=== PATIENT | female | born 2000 | race Two or more races ===

== ENCOUNTER 2022-02-23 22:24 | Emergency (ER) | payer MEDICAID ==
[~2022-02-23] VITALS: Ht 165.1 cm; Wt 109.3 kg
[~2022-02-23 22:24] MED LIST: PALI234D IM
[2022-02-23 23:54] VITALS: BP 147/102
--- NOTE | 2022-02-24 06:30 | NUR ---
DR. GUERRERO AT BEDSIDE.
== END 2022-02-24 06:40 | disposition home or self-care (01) ==
LOC: ER 22:25
DX: R44.0 Auditory hallucinations (principal); J45.909 Unspecified asthma, uncomplicated; F41.9 Anxiety disorder, unspecified; F32.9 Major depressive disorder, single episode, unspecified; F12.90 Cannabis use, unspecified, uncomplicated; Z79.899 Other long term (current) drug therapy
CPT/HCPCS: 99283

== ENCOUNTER 2023-01-29 23:11 | Inpatient (IN) | payer MEDICAID ==
[~2023-01-29] VITALS: Ht 167.6 cm; Wt 102.0 kg
[2023-01-29] MEDS ORDERED: FLUO-1 PO (23:53)
[2023-01-29] MEDS ORDERED: ARIP400S3 IM (23:53)
[2023-01-29] MEDS ORDERED: LEVO112T5 PO (23:53)
[2023-01-29] MEDS ORDERED: BENZ2TAB70 PO (23:53)
[2023-01-29] MEDS ORDERED: VALB80CA PO (23:53)
[2023-01-30 00:05] LABS: BASOPHILS # (AUTO) 0.1 X10'3 (0-0.2); BASOPHILS % (AUTO) 0.7 % (0-1); EOSINOPHILS # (AUTO) 0.1 X10'3 (0-0.9); EOSINOPHILS % (AUTO) 1.3 % (0-6); HEMATOCRIT 39.4 % (35.0-45.0); HEMOGLOBIN 13.3 g/dl (12.0-16.0); LYMPHOCYTES # (AUTO) 2.3 X10'3 (1.1-4.8); LYMPHOCYTES % (AUTO) 25.4 % (21-51); MEAN CORPUSCULAR HEMOGLOBIN 27.5 PG (27.0-31.0); MEAN CORPUSCULAR HGB CONC 33.9 g/dL (33.0-36.5); MEAN CORPUSCULAR VOLUME 81.2 FL (78-98); MEAN PLATELET VOLUME 8.2 FL (7.4-10.4); MONOCYTES # (AUTO) 0.6 X10'3 (0-0.9); MONOCYTES % (AUTO) 6.3 % (2-12); NEUTROPHILS % (AUTO) 66.3 % (42-75); PLATELET COUNT 285 X10'3 (140-440); RED BLOOD COUNT 4.85 X10'6 (4.20-5.60); RED CELL DISTRIBUTION WIDTH 16.2 % (11.5-14.5); WHITE BLOOD COUNT 9.1 X10'3 (4.5-11.0)
[2023-01-30 00:14] LABS: ALANINE AMINOTRANSFERASE 58 U/L (12-78); ALBUMIN 4.1 G/DL (3.4-5.0); ALBUMIN/GLOBULIN RATIO 1.2 (1.1-1.5); ALKALINE PHOSPHATASE 89 IU/L (46-116); ANION GAP 11 (8-16); ASPARTATE AMINO TRANSFERASE 21 U/L (10-37); BILIRUBIN,TOTAL 0.4 MG/DL (0.1-1.0); BLOOD UREA NITROGEN 25 MG/DL (7-18); BUN/CREATININE RATIO 27.2 (10.0-20.0); CALCIUM 9.1 MG/DL (8.5-10.1); CHLORIDE 105 MMOL/L (99-107); CREATININE 0.92 MG/DL (0.40-0.90); GLUCOSE 98 MG/DL (70-104); POTASSIUM 3.5 MMOL/L (3.5-5.1); SODIUM 140 MMOL/L (135-145); TOTAL CARBON DIOXIDE 24.2 MMOL/L (24-32); TOTAL PROTEIN 7.6 G/DL (6.4-8.2); eGFR 75 ML/MIN
--- NOTE | 2023-01-30 00:20 | NUR ---
pt placed in room ed12
[2023-01-30 00:24] LABS: ETHANOL < 0.010 GM/DL (0.0-0.010)
--- NOTE | 2023-01-30 00:54 | NUR ---
pt meds taked to pharmacy. reciept placed in chart
[2023-01-30] MEDS ORDERED: levoTHYROXINE 112mcg tablet PO ONE (00:55)
--- NOTE | 2023-01-30 01:17 | NUR ---
pbb x1 locked in overflow storage room
--- NOTE | 2023-01-30 03:10 | NUR ---
pt yelling out "i dont want to live, no one is helping me." started discussion on procedure in the ed for mental health evale. education given on different copeing skills. pt responded well to instructions was able to redirect pt negitive thoughts into a more positive outlook. pt calmed down an stated" i feel better now". pt resting comfortably
[2023-01-30 04:31] LABS: URINE HCG NEGATIVE (NEG)
[2023-01-30 04:32] LABS: CLARITY,URINE CLEAR (Clear); COLOR,URINE YELLOW (Yellow); GLUCOSE, URINE NEGATIVE (Neg); KETONES,URINE 40 mg/dl (Neg); LEUKOCYTE ESTERASE ,URINE NEGATIVE (Neg); NITRITES, URINE NEGATIVE (Neg); OCCULT BLOOD,URINE NEGATIVE (Neg); PROTEIN,URINE 30 mg/dl (Neg); UROBILINOGEN,URINE 0.2 E.U/dL (0.2-1.0)
[2023-01-30 04:43] LABS: MUCUS STRANDS MANY /LPF (Neg); UA COLLECTION TYPE CLN CATCH MIDSTREAM
[2023-01-30 04:44] LABS: BACTERIA,URINE 1+ /HPF (Neg); FINE GRANULAR CAST 0-3 /LPF (NEGATIVE); SQUAMOUS EPITHELIAL CELL,UR MANY /LPF (FEW)
[2023-01-30 04:45] LABS: RBC,URINE 0-2 /HPF (0-2); URINE AMPHETAMINE SCREEN NEGATIVE (Neg); URINE BARBITUATE SCREEN NEGATIVE (Neg); URINE BENZODIAZEPINES SCREEN NEGATIVE (Neg); URINE CANNABINOID SCREEN NEGATIVE (Neg); URINE COCAINE SCREEN NEGATIVE (Neg); URINE METHADONE SCREEN NEGATIVE (Neg); URINE OPIATE SCREEN NEGATIVE (Neg); URINE PHENCYCLIDINE SCREEN NEGATIVE (Neg)
--- NOTE | 2023-01-30 06:06 | NUR ---
pt came out of room looking through drawers of room carts, when questioned on what shes doing she replied with " im looking for pills to kill myself with. pt was able to be redirected back into her room. pt sitting quietly on bed, somber effect , crying once in awhile.
--- NOTE | 2023-01-30 06:35 | NUR ---
Patient brought to ER overflow, in green scrubs. Patient was quite when she came over and sat in the middle of her bed, starring at nurses station.
--- NOTE | 2023-01-30 07:30 | NUR ---
Patient went to the bathroom and flooded the toilet. Patient started crying when staff advised her not to stuff toilet paper in the toilet. Patient stated that she was consitpated. Advised MD and MOM was ordered and given
[2023-01-30] MEDS ORDERED: LEVO112C4 PO (08:24)
[2023-01-30] MEDS ORDERED: FLUO20CA39 PO (08:24)
[2023-01-30] MEDS ORDERED: VALB80CA PO (08:24)
[2023-01-30] MEDS ORDERED: BENZ1TAB93 PO (08:24)
--- NOTE | 2023-01-30 08:29 | NUR ---
packet faxed to [facility]
[2023-01-30] MEDS ORDERED: magnesium hydroxide 30ml (MOM) UD suspension PO ONE (08:35)
--- NOTE | 2023-01-30 12:00 | NUR ---
Patient accepted at [facility]. Going upstairs at 1400. Patient calm and in no distress. Continue to monitor.
--- NOTE | 2023-01-30 12:25 | NUR ---
Patient is calm, and visiting with family at bedside.
[2023-01-30] MEDS ORDERED: magnesium hydroxide 30ml (MOM) UD suspension PO PRN (12:45)
--- NOTE | 2023-01-30 13:16 | NUR ---
Patient had a BM today after drinking MOM
--- NOTE | 2023-01-30 13:52 | NUR ---
Patient grandmother took all her belongings home after the visit. Belonging list was signed by grandmother. Grandmother states that she will bring back some clean clothes for the patient.
[2023-01-30 14:59] VITALS: BP 137/95
--- NOTE | 2023-01-30 16:05 | NUR ---
ADMIT NOTE: Pt transferred from ER overflow bed 23 to [facility] bed 331B. She arrived on the unit via wheelchair accompanied by [employer] and security at 1437. Pt arrived wearing a very long bright pink wig with pigtails on each side. Pt was reluctant to give up her wig and shut down. Pt would not cooperate or answer questions nor give up the wig. Security was called and patient did relinquish the wig. She was then cooperative with the rest of the admission process. Pt BIB Account Financial Manager after she called [employer] reporting that she was armed with a knife and wanted to kill herself. Pt continued to make suicidal statements and was unable to safety plan. Pt was placed on a 5150 for DTS. Pt currently denies SI. 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 Pt's grandmother works as a MAIL DISTRIBUTION CLERK at [employer]. Per pt, she became paranoid when she received a call from [id number] "drugs" talking about a delivery. There was a misunderstanding per patient, evidently other staff members became involved and it ended up that the delivery was for the patient's medication Ingrezza. Pt believed staff members were looking at her weird and pointing fingers. Pt is circumstantial and took a long time to explain what had happened. Pt reports that she then felt like she could feel better by skateboarding and listening to her headphones. Pt knows that she needs her meds. Pt reports that her next dose of Abilify maintenna is due on the . Pt reports that she used to be a cutter when she was younger but has had no serious suicide attempts. Pt reports that she is Polynesian.
[2023-01-30 20:30] VITALS: BP 123/86
--- NOTE | 2023-01-31 04:55 | NUR ---
Nursing Progress Note: Problem: Pt WING [place] after she called [employer] reporting that she was armed with a knife and wanted to kill herself. Pt continued to make suicidal statements and was unable to safety plan. Pt was placed on a 5150 for DTS. 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 Pt's grandmother works as a MANAGER OF ORGANIZATIONAL DEVELOPMENT at [employer]. Per pt, she became paranoid when she received a call from [employer] "drugs" talking about a delivery. There was a misunderstanding per patient, evidently other staff members became involved and it ended up that the delivery was for the patient's medication Ingrezza. Pt believed staff members were looking at her weird and pointing fingers. Pt is circumstantial and took a long time to explain what had happened. Pt reports that she then felt like she could feel better by skateboarding and listening to her headphones. Pt knows that she needs her meds. Pt reports that her next dose of Abilify maintenna is due on the . Pt reports that she used to be a cutter when she was younger but has had no serious suicide attempts. Pt reports that she is Polynesian. Intervention: Provided 1:1 assessment with therapeutic communication and active listening; Medication administration/education/monitoring; Provided clear and simple instructions; Encouraged performance of ADLs and participation on the unit, and maintained Q 15min safety checks. Response: Upon turn of shift noted patient wearing green scrubs while standing near nurses station looking for her nurse. Was in open body posture and friendly. Noted to have fair hygiene with bright pink hair standing up all over head. Reports feeling insecure about her weight issues, and how she feels like she has to look a certain way to be accepted. Denies SI, HI, AH and VH. No scheduled meds given. No PRNs given. Slept well this shift. VSS. Will continue to monitor. Plan: Patient requires interruption of current crisis in a safe and therapeutic environment; medication adjustment as needed.
[2023-01-31] MEDS: levoTHYROXINE 112mcg tablet PO SCH (07:56)
[2023-01-31] MEDS: FLUoxetine 20mg capsule PO SCH (07:56)
[2023-01-31] MEDS: benztropine 1mg tablet PO SCH (07:56)
[2023-01-31 08:00] VITALS: BP 124/68
--- NOTE | 2023-01-31 15:29 | NUR ---
Nursing Progress Note: Problem: Pt WING Crook after she called [employer] reporting that she was armed with a knife and wanted to kill herself. Pt continued to make suicidal statements and was unable to safety plan. Pt was placed on a 5150 for DTS. 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 Pt reports that she used to be a cutter when she was younger but has had no serious suicide attempts. Intervention: 1:1 assessment, establishment of rapport, therapeutic conversation, active listening, ensured contract for safety, medication administration/education/monitoring, provided distraction, simple directions, reality orientation, positive reinforcement and Q15 minute safety checks. Response: Pt was up for breakfast, she was pleasant and cooperative with taking her medications although she did report that she normally takes her Ingrezza at HS as it makes her "jittery" in the morning. At around 0930, pt approached this nurse to ask if we could talk. Followed pt down the dsouza. Pt anxiously stated that "Abdi said he wants to keep me here forever." Pt was referring to JOSETTE Sesay. Pt was wide eyed. Pt went on to say that she has to be out of here by February as she has to go to her brother's middle school graduation. Reassured pt that she would not be here forever and that it was highly unlikely that she would still be on the unit in February as she has a good support system at home and established providers. Suggested that if Abdi did say that perhaps he was joking and only said it because he likes her. Pt was reassured. Pt's grandma dropped off clothes and other belongings for her, many of the items appeared brand new. Pt spent time in the milieu coloring, socializing with peers, and watching TV. Pt is helpful with some of the older peers. Pt denies SI/HI/AH/VH. Pt does not appear to be responding to internal stimuli. Pt shows some insight by re-evaluating the actions that landed her in a psych facility. Pt explains that she just felt overwhelmed in the moment and couldn't stand the way she was feeling. In hindsight, pt realizes she should have reached out to someone. Plan: Patient requires interruption of current crisis in a safe and therapeutic environment.
[2023-01-31 19:41] VITALS: BP 122/75
--- NOTE | 2023-02-01 03:41 | NUR ---
Nursing Progress Note: Problem: Pt WING Crook after she called [employer] reporting that she was armed with a knife and wanted to kill herself. Pt continued to make suicidal statements and was unable to safety plan. Pt was placed on a 5150 for DTS. 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 Pt reports that she used to be a cutter when she was younger but has had no serious suicide attempts. Intervention: 1:1 assessment, establishment of rapport, therapeutic conversation, active listening, ensured contract for safety, medication administration/education/monitoring, provided distraction, simple directions, reality orientation, positive reinforcement and Q15 minute safety checks. Response: Upon turn of shift noted patient in activity room socializing, wearing green scrubs, and wide eyed look. Has bright pink hair pulled back in a bun on top of her head. Is pleasant, calm and cooperative. Open body posture and friendly. Reports that she feels, better. Denies SI, HI, AH, and VH. Requested to have her pink pants removed from suitcase. No scheduled meds given and no PRNs given. Went to bed early and slept well this shift. VSS. Will continue to monitor. Plan: Patient requires interruption of current crisis in a safe and therapeutic environment.
[2023-02-01] MEDS: benztropine 1mg tablet PO SCH (07:47)
[2023-02-01] MEDS: levoTHYROXINE 112mcg tablet PO SCH (07:47)
[2023-02-01] MEDS: FLUoxetine 20mg capsule PO SCH (07:47)
[2023-02-01 08:00] VITALS: BP 131/76
--- NOTE | 2023-02-01 15:39 | NUR ---
Nursing Progress Note: Problem: Pt WING Crook after she called [employer] reporting that she was armed with a knife and wanted to kill herself. Pt continued to make suicidal statements and was unable to safety plan. Pt was placed on a 5150 for DTS. 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 Pt reports that she used to be a cutter when she was younger but has had no serious suicide attempts. Intervention: 1:1 assessment, establishment of rapport, therapeutic conversation, active listening, ensured contract for safety, medication administration/education/monitoring, provided distraction, simple directions, reality orientation, positive reinforcement and Q15 minute safety checks. Response: Pt was up before breakfast and cooperative with her medications. Pt reports that she did not feel "jittery" yesterday after taking her Ingrezza in the morning. Pt declined to eat breakfast reporting that she was not hungry. Pt did eat morning snack and lunch. Pt's grandmother came for a visit. Pt showered today. Pt socializes with select peers. Pt denies depression, SI/HI/AH/VH. Plan: Patient requires interruption of current crisis in a safe and therapeutic environment.
--- NOTE | 2023-02-01 15:59 | NUR ---
CASE MANAGEMENT Spoke to Pt's grandmother Neha [phone] today. Pt lives with her grandmother and plans to go back there upon discharge. Pt's grandmother is in agreement with this plan. Her grandmother can pick her up on Saturday after 2:30PM as she works. Her grandmother is very supportive and has been Pt's main caregiver since she was a child. Follow up appointments have been made for Pt for next week and in the discharge summary. Nuha Koch LCSW
[2023-02-01 19:00] VITALS: BP 116/73
--- NOTE | 2023-02-02 03:19 | NUR ---
RN PROGRESS NOTE: PROBLEM: Pt WING Crook after she called [employer] reporting that she was armed with a knife and wanted to kill herself. Pt continued to make suicidal statements and was unable to contract for safety. Pt was placed on a 5150 for DTS. 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 Pt reports that she used to be a cutter when she was younger but has had no serious suicide attempts. INTERVENTIONS: Assessments and Q 15 min checks for safety. RESPONSE: Client was pleasant and cooperative. Denies side effects to medications and states she is "doing better". Compliant with medications. Mood is stable.
[2023-02-02 08:00] VITALS: BP 111/76
[2023-02-02] MEDS: FLUoxetine 20mg capsule PO SCH (08:51)
[2023-02-02] MEDS: benztropine 1mg tablet PO SCH (08:51)
[2023-02-02] MEDS: levoTHYROXINE 112mcg tablet PO SCH (08:52)
--- NOTE | 2023-02-02 14:10 | NUR ---
Called patient family, to make aware of patients discharge. Patient Grandmother verified that she will be here at 3.
--- NOTE | 2023-02-02 14:11 | NUR ---
Nursing Progress Note: Problem: Pt WING Crook after she called [employer] reporting that she was armed with a knife and wanted to kill herself. Pt continued to make suicidal statements and was unable to safety plan. Pt was placed on a 5150 for DTS. 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 Pt reports that she used to be a cutter when she was younger but has had no serious suicide attempts. Intervention: 1:1 assessment, establishment of rapport, therapeutic conversation, active listening, ensured contract for safety, medication administration/education/monitoring, provided distraction, simple directions, reality orientation, positive reinforcement and Q15 minute safety checks. Response: Pt was up before breakfast and cooperative with her medications. Patient reported she had good nights rest, woke at 0300 then went back to bed till 0600. Pt did eat breakfast morning snack and lunch. Pt's grandmother is brandi arrive at 1500 for patient discharge into her care. Plan: Patient requires interruption of current crisis in a safe and therapeutic environment.
--- NOTE | 2023-02-02 14:45 | NUR ---
Patient discharged home to the care of her grandmother, Patient was sent home with no new medications patient education was provided by fuel assembler. Patient went through all of her belongings and left with them at discharge. Patient had no IV for removal. Patient family was contacted and stated to arrive at the 1500 hour. Patient left with all of her belongings at discharge.
[2023-02-13] MEDS ORDERED: aripiprazole 400mg suspension ER syringe IM SCH (08:00)
== END 2023-02-02 14:45 | disposition home or self-care (01) | DRG 750 ==
LOC: ER 23:11 → ED HOLD 01-30 12:00 → ADULT MH 01-30 14:55
PROVIDERS: ADMIT Psychiatry & Neurology Psychiatry; ATTEND Psychiatry & Neurology Psychiatry
DX: F25.9 Schizoaffective disorder, unspecified (principal); R45.851 Suicidal ideations; Z20.822 Contact with and (suspected) exposure to COVID-19; E03.9 Hypothyroidism, unspecified; F12.90 Cannabis use, unspecified, uncomplicated; G24.01 Drug induced subacute dyskinesia; F31.9 Bipolar disorder, unspecified; S61.512A Laceration without foreign body of left wrist, initial encounter; X78.8XXA Intentional self-harm by other sharp object, initial encounter; F41.9 Anxiety disorder, unspecified; J45.909 Unspecified asthma, uncomplicated; Z63.72 Alcoholism and drug addiction in family; Z81.3 Family history of other psychoactive substance abuse and dependence; Z91.52 Personal history of nonsuicidal self-harm; Y93.89 Activity, other specified; Y92.89 Other specified places as the place of occurrence of the external cause; Y99.8 Other external cause status; Z79.899 Other long term (current) drug therapy
CPT/HCPCS: 36415; 80053; 80305; 80320; 81001; 81025; 84443; 85025; 87081; 87811; 99285

== ENCOUNTER 2024-05-11 12:52 | Inpatient (IN) | payer MEDICAID ==
[~2024-05-11] VITALS: Ht 170.2 cm; Wt 123.6 kg
[~2024-05-11 12:52] MED LIST changes: +ARIP400S3 IM; +BENZ2TAB74 PO; +FLUO-1 PO; +LEVO112T5 PO; -PALI234D IM; +VALB80CA PO
[2024-05-11] MEDS: LORazepam 2 mg/ml vial IM ONE (14:00)
[2024-05-11] MEDS: haloperidol lactate 5mg/ml inj IM ONE (14:01)
[2024-05-11] MEDS: diphenhydrAMINE 50 mg/ml inj IM ONE (14:01)
[2024-05-11 14:22] LABS: BASOPHILS % (AUTO) 0.4 % (0-1); EOSINOPHILS % (AUTO) 0.5 % (0-6); HEMATOCRIT 40.2 % (35.0-45.0); HEMOGLOBIN 13.6 g/dl (12.0-16.0); LYMPHOCYTES # (AUTO) 1.8 X10'3 (1.1-4.8); LYMPHOCYTES % (AUTO) 25.2 % (21-51); MEAN CORPUSCULAR HEMOGLOBIN 29.6 PG (27.0-31.0); MEAN CORPUSCULAR HGB CONC 33.8 g/dL (33.0-36.5); MEAN CORPUSCULAR VOLUME 87.6 FL (78-98); MEAN PLATELET VOLUME 8.2 FL (7.4-10.4); MONOCYTES # (AUTO) 0.7 X10'3 (0-0.9); MONOCYTES % (AUTO) 9.3 % (2-12); NEUTROPHILS # (AUTO) 4.7 X10'3 (1.8-7.7); NEUTROPHILS % (AUTO) 64.6 % (42-75); PLATELET COUNT 217 X10'3 (140-440); RED BLOOD COUNT 4.58 X10'6 (4.20-5.60); RED CELL DISTRIBUTION WIDTH 14.2 % (11.5-14.5); WHITE BLOOD COUNT 7.2 X10'3 (4.5-11.0)
[2024-05-11 14:32] LABS: ALBUMIN 3.8 G/DL (3.4-5.0); ANION GAP 9 (8-16); BLOOD UREA NITROGEN 21 MG/DL (7-18); BUN/CREATININE RATIO 22.1 (10.0-20.0); CHLORIDE 105 MMOL/L (99-107); CREATININE 0.95 MG/DL (0.40-0.90); ETHANOL < 10 MG/DL (<10); GLUCOSE 121 MG/DL (70-104); POTASSIUM 3.9 MMOL/L (3.5-5.1); SODIUM 139 MMOL/L (135-145); TOTAL CARBON DIOXIDE 25.3 MMOL/L (24-32); eCRCL 85 ML/MIN; eGFR 72 ML/MIN
[2024-05-11 16:35] LABS: URINE HCG NEGATIVE (NEG)
[2024-05-11 16:46] LABS: URINE AMPHETAMINE SCREEN NEGATIVE (Neg); URINE BARBITUATE SCREEN NEGATIVE (Neg); URINE BENZODIAZEPINES SCREEN NEGATIVE (Neg); URINE CANNABINOID SCREEN NEGATIVE (Neg); URINE COCAINE SCREEN NEGATIVE (Neg); URINE METHADONE SCREEN NEGATIVE (Neg); URINE OPIATE SCREEN NEGATIVE (Neg); URINE PHENCYCLIDINE SCREEN NEGATIVE (Neg)
[2024-05-11] MEDS: ziprasidone IM 20mg inj **IM only IM ONE (18:15)
[2024-05-11] MEDS ORDERED: RISP3TAB77 PO (18:43)
[2024-05-12 12:38] VITALS: BP 127/88; PULSE 104; RESP 16; TEMP 98.4; O2SAT 98
[2024-05-12] MEDS ORDERED: magnesium hydroxide 30ml (MOM) UD suspension PO PRN (13:15)
[2024-05-12] MEDS ORDERED: acetaminophen 325mg tablet PO PRN ×2 (13:15)
[2024-05-12] MEDS ORDERED: mag hydrox/Alum hydrox/simeth 30ml oral suspension PO PRN (13:15)
[2024-05-12 13:55] VITALS: RESP 16
[2024-05-12] MEDS ORDERED: DIVA250T4 PO (15:43)
[2024-05-12] MEDS ORDERED: RISP3TAB11 PO (15:43)
[2024-05-12] MEDS ORDERED: PROP40TA72 PO (15:43)
[2024-05-12] MEDS ORDERED: HYDR-3686 PO (15:43)
[2024-05-12] MEDS ORDERED: QUET200T PO (15:43)
[2024-05-12] MEDS ORDERED: ARIP300S2 IM (15:43)
[2024-05-12 19:00] VITALS: RESP 16; O2SAT 98
[2024-05-12 20:00] VITALS: RESP 16
[2024-05-12] MEDS: propranolol 40mg tablet PO SCH (20:00)
[2024-05-12] MEDS: risperiDONE 2mg tablet PO SCH (20:00)
[2024-05-12] MEDS: divalproex 250mg tablet, delayed-release PO SCH (20:00)
[2024-05-12] MEDS: risperiDONE 0.5mg tablet PO SCH (20:00)
[2024-05-12] MEDS: quetiapine 100mg tablet PO SCH (21:00)
[2024-05-13] MEDS: levoTHYROXINE 112mcg tablet PO SCH (07:00)
[2024-05-13 07:40] VITALS: RESP 16; O2SAT 98
[2024-05-13 07:45] VITALS: BP 142/103; PULSE 119; RESP 16; TEMP 98.3; O2SAT 98
[2024-05-13 09:30] VITALS: BP 149/88; PULSE 92
[2024-05-13] MEDS: LORazepam 2 mg/ml vial ONE (10:08)
[2024-05-13 19:00] VITALS: RESP 18; O2SAT 98
[2024-05-13 20:00] VITALS: BP 147/86; PULSE 85; RESP 18; TEMP 98; O2SAT 98
[2024-05-13] MEDS: LORazepam 2 mg/ml vial IM ONE (23:59)
[2024-05-14 07:45] VITALS: BP 147/86; PULSE 85; RESP 18; TEMP 98; O2SAT 98
[2024-05-14 08:57] VITALS: RESP 18; O2SAT 98
[2024-05-14 19:22] VITALS: RESP 16; O2SAT 97
[2024-05-14 19:26] VITALS: BP 153/89; PULSE 100; RESP 16; TEMP 97.8; O2SAT 97
[2024-05-14] MEDS: hydrOXYzine 25 MG tablet PO PRN (20:51)
[2024-05-15 07:30] VITALS: BP 150/89; PULSE 88; RESP 16; TEMP 97.5; O2SAT 98
[2024-05-15 08:38] LABS: THYROID STIMULATING HORMONE 5.06 ulU/ml (0.34-4.50)
[2024-05-15] MEDS: diphenhydrAMINE 50 mg/ml inj ONE (08:42)
[2024-05-15] MEDS: LORazepam 2 mg/ml vial ONE (08:42)
[2024-05-15] MEDS: haloperidol lactate 5mg/ml inj ONE (08:42)
[2024-05-15 19:04] VITALS: RESP 18; O2SAT 100
[2024-05-15 19:05] VITALS: BP 124/71; PULSE 80; RESP 18; TEMP 98; O2SAT 100
[2024-05-16 07:30] VITALS: BP 126/76; PULSE 85; RESP 16; RESP 18; TEMP 97.2; O2SAT 98
[2024-05-16 19:49] VITALS: RESP 15; O2SAT 97
[2024-05-16 19:51] VITALS: BP 123/87; PULSE 99; RESP 15; TEMP 97.3; O2SAT 97
[2024-05-17 07:30] VITALS: BP 106/64; PULSE 62; RESP 14; TEMP 98.5; O2SAT 100
[2024-05-17 07:45] VITALS: RESP 14; O2SAT 100
[2024-05-17 15:35] LABS: CHOL/HDL RATIO 3.1 (0.00-4.99); CHOLESTEROL 116 MG/DL (0-200); HDL CHOLESTEROL 38 MG/DL (35-60); LDL CHOLESTEROL 66 MG/DL (50-100); TRIGLYCERIDES 61 MG/DL (20-135)
[2024-05-17 15:38] LABS: HEMOGLOBIN A1C 5.2 % (4.5-6.2)
[2024-05-17 19:11] VITALS: RESP 18; O2SAT 96
[2024-05-17 19:13] VITALS: BP 148/98; PULSE 88; RESP 18; TEMP 97.8; O2SAT 96
[2024-05-18 06:30] VITALS: RESP 16; O2SAT 97
[2024-05-18 07:00] VITALS: BP 127/82; PULSE 98; RESP 16; TEMP 98; O2SAT 97
[2024-05-18 19:00] VITALS: RESP 18; O2SAT 97
[2024-05-18 20:00] VITALS: BP 140/88; PULSE 98; RESP 18; TEMP 98.7; O2SAT 97
[2024-05-18] MEDS: haloperidol lactate 5mg/ml inj ONE (20:10)
[2024-05-18] MEDS: LORazepam 2 mg/ml vial IM ONE (20:13)
[2024-05-18] MEDS: LORazepam 2 mg/ml vial ONE (20:14)
[2024-05-19 07:09] VITALS: PULSE 72; RESP 17; TEMP 97.9; O2SAT 95
[2024-05-19 07:59] VITALS: RESP 17; O2SAT 100
[2024-05-19 14:47] VITALS: BP 107/61; PULSE 82
[2024-05-19 19:21] VITALS: BP 116/86; PULSE 80; RESP 16; TEMP 98.9; O2SAT 99
[2024-05-20 08:00] VITALS: BP 113/64; PULSE 78; RESP 16; TEMP 98.4; O2SAT 98
[2024-05-20 19:00] VITALS: RESP 18; O2SAT 99
[2024-05-20 20:00] VITALS: BP 126/83; PULSE 100; RESP 18; TEMP 97.7; O2SAT 99
[2024-05-21 07:27] VITALS: BP 130/81; PULSE 76; RESP 16; TEMP 97.5; O2SAT 99
[2024-05-21 19:00] VITALS: RESP 22; O2SAT 99
[2024-05-21 20:00] VITALS: BP 123/69; PULSE 94; RESP 22; TEMP 98.2; O2SAT 99
[2024-05-22 08:00] VITALS: BP 112/67; PULSE 62; RESP 16; TEMP 97.6; O2SAT 100
[2024-05-22 19:00] VITALS: RESP 14; O2SAT 98
[2024-05-22 20:00] VITALS: BP 115/66; PULSE 86; RESP 14; TEMP 97.9; O2SAT 98
[2024-05-23 07:55] VITALS: BP 114/59; PULSE 67; RESP 16; TEMP 97.4; O2SAT 99
[2024-05-23 19:00] VITALS: RESP 18; O2SAT 97
[2024-05-23] MEDS: loperamide 2mg capsule PO PRN (19:14)
[2024-05-23 20:00] VITALS: BP 133/85; PULSE 103; PULSE 85; RESP 16; TEMP 98.8; O2SAT 97
[2024-05-24 07:30] VITALS: BP 111/72; PULSE 63; RESP 16; TEMP 97.1; O2SAT 100
[2024-05-24] MEDS: levoTHYROXINE 125mcg tablet PO SCH (08:25)
[2024-05-24 19:20] VITALS: RESP 18; O2SAT 99
[2024-05-24 20:00] VITALS: BP 119/84; PULSE 101; RESP 18; TEMP 97.8; O2SAT 99
[2024-05-25 07:30] VITALS: BP 148/80; PULSE 83; RESP 16; TEMP 98.1; O2SAT 99
[2024-05-25] MEDS ORDERED: PROP40TA72 PO (13:11)
[2024-05-25] MEDS ORDERED: QUET200T PO (13:11)
[2024-05-25] MEDS ORDERED: RISP3TAB11 PO (13:11)
[2024-05-25] MEDS ORDERED: DIVA250T4 PO (13:11)
[2024-05-25] MEDS ORDERED: HYDR-3686 PO (13:11)
[2024-05-25] MEDS ORDERED: LEVO125T8 PO (13:11)
[2024-05-25] MEDS: aripiprazole 400mg suspension ER syringe IM ONE (14:04)
[2024-06-09] MEDS ORDERED: ARIPIPRAZOLE IM SCH (08:00)
== END 2024-05-25 14:20 | disposition home or self-care (01) | DRG 751 ==
LOC: ER 12:53 → ED HOLD 05-12 09:30 → ADULT MH 05-12 12:41
PROVIDERS: ADMIT Psychiatry & Neurology Psychiatry; ATTEND Psychiatry & Neurology Psychiatry
PROC: GZHZZZZ Group Psychotherapy (ICD-10-PCS; principal; 2024-05-15)
PROC: GZ51ZZZ Individual Psychotherapy, Behavioral (ICD-10-PCS; 2024-05-15)
DX: F23 Brief psychotic disorder (principal); N17.9 Acute kidney failure, unspecified; E03.9 Hypothyroidism, unspecified; F32.A Depression, unspecified; J45.909 Unspecified asthma, uncomplicated; Z20.822 Contact with and (suspected) exposure to COVID-19; E86.0 Dehydration; F60.9 Personality disorder, unspecified; E66.01 Morbid (severe) obesity due to excess calories; F41.9 Anxiety disorder, unspecified; Z88.8 Allergy status to other drugs, medicaments and biological substances; Z88.0 Allergy status to penicillin; Z68.41 Body mass index [BMI] 40.0-44.9, adult; Z79.899 Other long term (current) drug therapy
CPT/HCPCS: 36415; 80048; 80061; 80164; 80305; 80320; 81025; 83036; 84443; 85025; 87081; 87811; 99285; A6250; J1200; J1630; J2060; J3486; Q0177

== ENCOUNTER 2025-04-02 11:46 | Emergency (ER) | payer MEDICAID ==
[~2025-04-02] VITALS: Ht 165.1 cm; Wt 119.8 kg
[~2025-04-02 11:46] MED LIST changes: +ARIP300S2 IM; -ARIP400S3 IM; -BENZ2TAB74 PO; +DIVA250T4 PO; -FLUO-1 PO; +HYDR-3686 PO; -LEVO112T5 PO; +LEVO125T8 PO; +PROP40TA72 PO; +QUET200T PO; +RISP3TAB11 PO; -VALB80CA PO
[2025-04-02 11:47] VITALS: BP 139/82; PULSE 107; TEMP 96.8; O2SAT 99
[2025-04-02 12:26] VITALS: RESP 16
[2025-04-02] MEDS: ketorolac trometh 30MG/ML vial 30 MG/ML VIAL IM ONE (12:26)
--- NOTE | 2025-04-02 12:26 | Physician Documentation ---
History of Present Illness ~ Chief Complaint: Back Pain Stated Complaint: LOWER BACK PAIN Time Seen by MD: 11:58 Primary Medical Doctor: Mayela IBARRA 24-year-old female slept on her stomach and woke up with back pain she is wearing a brace she just states that it has been painful for about 4 days and can not get into her primary care. No recent falls or injuries. No loss of bow el or bladder control Medication Reconciliation Allergies: Coded Allergies: escitalopram (Verified Allergy, Unknown, 05/12/24) iloperidone (Verified Allergy, Unknown, 05/12/24) risperidone (Verified Allergy, Unknown, 05/12/24) Uncoded Allergies: Pencillian (Allergy, Unknown, 05/12/24) Scheduled Aripiprazole (Abilify Maintena), 1 ML IM Q28D, (Reported) Divalproex Sodium (Depakote), 3 TAB PO BID Levothyroxine Sodium (Levothyroxine Sodium), 125 MCG PO DAILY@0700 Propranolol Hcl* (Inderal*), 1 TAB PO BID Quetiapine Fumarate (Seroquel), 1 TAB PO HS Risperidone (Risperdal), 1 TAB PO BID Scheduled PRN Hydroxyzine Hcl* (Atarax*), 1-2 TAB PO BID PRN for anxiety Past Medical History Past Medical History: No Pertinent History, Asthma, Anxiety, Depression Past Surgical History: noncontributory Patient History: Patient reports no known family medical history. Alcohol Use: None Drug Use: marijuana Lives with: Family Lives In: Home Occupation: student Review of Systems All Other Systems at this time: Reviewed and Negative Musculoskeletal: Reports: see HPI Physical Exam Physical Exam Vital Signs: Temperature: 96.8, Source: Temporal, Heart Rate: 107, Respiratory Rate: 16, BP: 139/82, Pulse Oximetry: 99, Weight: 119.800 Physical Exam General: Alert, no apparent distress. HEENT: PERRL, EOMI, no injection, moist mucous membranes. Neck: Full range of motion. Respiratory: Lungs clear, no respiratory distress. Chest: No accessory muscle use. Cardiovascular: Regular rate and rhythm, no murmurs. Extremities: Normal range of motion, no deformity. Spine: No spinal process tenderness or deformities including step-offs or edema. No CVA tenderness Neurologic: Oriented x4. Psychiatric: Normal mood and affect. Skin: Normal color, warm and dry. No edema, no ecchymosis. Progress Results/Orders Results/Orders Completed Orders - NUHA CHRISTIE NP Ketorolac Trometh 30mg/Ml Vial (Toradol (04/02/25 12:10) Vital Signs 04/02/25 11:47 Temp 96.8 Pulse 107 Resp 16 B/P (MAP) 139/82 Pulse Ox 99 Medical Decision Making Findings Patient slept wrong no obvious urinary symptoms to cause differentially pyelonephritis. No CVA tenderness. Patient is wearing back brace with some relief. Toradol provided prior to discharge. Medications for muscle spasms and anti-inflammatory for back pain relief to follow up with primary care Departure Time of Disposition: 12:27 Disposition: HOME / SELF CARE / HOMELESS Impression: Primary Impression: Low back pain Condition: Stable Discharge Instructions: Acute Back Pain, Adult Additional Instructions: Use ibuprofen and Flexeril which is a muscle relaxer it can make you tired but it can help with some of the pain. Stretch, stay well hydrated use back brace for comfort. Follow up with primary care in a week Referrals: NO PRIMARY CARE PROVIDER (PCP) Prescriptions Cyclobenzaprine* (Cyclobenzaprine*) 10 Mg Tablet 1 TAB PO Q8H for muscle spasms for 10 Days, #30 TAB 0 Refills Prov: NUHA CHRISTIE NP 04/02/25 Ibuprofen (Ibu) 800 Mg Tablet 1 TAB PO Q8H for 7 Days, #21 TAB 0 Refills Prov: NUHA CHRISTIE NP 04/02/25 Education Educated: Patient Educated regarding: diagnosis, treatment, need for follow up Signature Scribe Signature: No scribe Attestation: The note accurately reflects work and decisions made by me.Nuha Christie - DELI CUTTER SLICER 04/02/25 12:31 NUHA CHRISTIE NP Apr 02, 2025 12:26
[2025-04-02] MEDS ORDERED: IBUP-864 PO (12:30)
[2025-04-02] MEDS ORDERED: CYCL-1 PO (12:30)
== END 2025-04-02 12:32 | disposition home or self-care (01) ==
LOC: ER 11:46
DX: M54.50 Low back pain, unspecified (principal); F41.9 Anxiety disorder, unspecified; F32.A Depression, unspecified; F12.90 Cannabis use, unspecified, uncomplicated; Z88.8 Allergy status to other drugs, medicaments and biological substances; Z79.899 Other long term (current) drug therapy
CPT/HCPCS: 96372; 99283; J1885